=== PATIENT | female | born 1960 | race Caucasian/White ===

== ENCOUNTER → 2018-08-01 | Outpatient (CLI) | payer BC ==
[2018-08-01 08:53] LABS: HGB 12.5 gm/dL (11.4-16.0); MCH 28.6 pg (25.0-35.0); MCHC 32.8 g/dL (31.0-37.0); MCV 87.2 fL (80.0-100.0); Mean Platelet Volume 8.1; Platelet Count 226 k/uL (150-450); RBC 4.36 m/uL (3.80-5.40); RDW 13.4 % (11.5-15.5); WBC 5.7 k/uL (3.8-10.6)
[2018-08-01 17:53] LABS: T4, Free (Free Thyroxine) 1.1 ng/dL (0.80-1.80)
[2018-08-01 17:54] LABS: Digoxin 0.8 ng/mL (0.8-2.0)
[2018-08-01 18:26] LABS: Albumin/Globulin Ratio 2.22 (1.60-3.17); Anion Gap 4.7 mmol/L (4.00-12.00); Calcium 8.9 mg/dL (8.7-10.3); Carbon Dioxide 28.3 mmol/L (21.6-31.8); Globulin 1.8 g/dL (1.6-3.3); LDL Cholesterol,Calculated 139.4 mg/dL (0.0-131.0); Magnesium 1.9 mg/dL (1.5-2.4); Potassium 4.3 mmol/L (3.5-5.5); Total Bilirubin 0.5 mg/dL (0.3-1.2); Total Protein 5.8 g/dL (6.2-8.2); VLDL Calculation 17.6 mg/dL (5.00-40.00)
[2018-08-01 20:29] LABS: Hemoglobin A1C 5.4 % (4.0-6.0)
== END ==
LOC: LABWHC1 08:20
PROVIDERS: ATTEND Nurse Practitioner
DX: E78.5 Hyperlipidemia, unspecified (principal); E03.9 Hypothyroidism, unspecified; E11.9 Type 2 diabetes mellitus without complications; D64.9 Anemia, unspecified; E55.9 Vitamin D deficiency, unspecified; E87.8 Other disorders of electrolyte and fluid balance, not elsewhere classified; E83.50 Unspecified disorder of calcium metabolism; R94.5 Abnormal results of liver function studies
CPT/HCPCS: 36415; 80053; 80061; 80162; 82306; 83036; 83735; 84436; 84439; 84443; 85027

== ENCOUNTER → 2019-01-30 | Outpatient (CLI) | payer BC ==
[2019-01-30 08:52] LABS: HCT 39.2 % (34.0-46.0); HGB 12.5 gm/dL (11.4-16.0); MCH 28.2 pg (25.0-35.0); MCHC 31.8 g/dL (31.0-37.0); MCV 88.5 fL (80.0-100.0); Mean Platelet Volume 7.7; Platelet Count 229 k/uL (150-450); RBC 4.43 m/uL (3.80-5.40); RDW 13.2 % (11.5-15.5); WBC 6.6 k/uL (3.8-10.6)
[2019-01-30 17:29] LABS: African American GFR (CKD) 93.5 (60.0-200.0); Albumin 4.1 g/dL (3.80-4.90); Albumin/Globulin Ratio 2.28 (1.60-3.17); Anion Gap 5.8 mmol/L (4.00-12.00); BUN/Creat Ratio 12.5 Ratio (12.00-20.00); Calcium 8.7 mg/dL (8.7-10.3); Carbon Dioxide 29.2 mmol/L (21.6-31.8); Chol/HDL Ratio 3.55; Globulin 1.8 g/dL (1.6-3.3); LDL Cholesterol,Calculated 130.6 mg/dL (0.0-131.0); Potassium 4.3 mmol/L (3.5-5.5); Total Bilirubin 0.4 mg/dL (0.3-1.2); Total Protein 5.9 g/dL (6.2-8.2); VLDL Calculation 17.4 mg/dL (5.00-40.00)
[2019-01-30 17:47] LABS: T4, Free (Free Thyroxine) 0.9 ng/dL (0.80-1.80)
[2019-01-30 18:14] LABS: Hemoglobin A1C 5.1 % (4.0-6.0)
== END | disposition home or self-care (01) ==
LOC: LABWHC1 08:28
PROVIDERS: ATTEND Internal Medicine Cardiovascular Disease
DX: E78.5 Hyperlipidemia, unspecified (principal); E03.9 Hypothyroidism, unspecified; E11.9 Type 2 diabetes mellitus without complications; D64.9 Anemia, unspecified; E61.2 Magnesium deficiency; E55.9 Vitamin D deficiency, unspecified; D51.8 Other vitamin B12 deficiency anemias; I10 Essential (primary) hypertension; E87.8 Other disorders of electrolyte and fluid balance, not elsewhere classified
CPT/HCPCS: 36415; 80053; 80061; 82306; 82607; 83036; 83735; 84436; 84439; 84443; 84479; 85027

== ENCOUNTER → 2020-06-12 | Outpatient (CLI) | payer BC ==
[2020-06-12 20:10] LABS: T4, Free (Free Thyroxine) 1.2 ng/dL (0.80-1.80)
== END | disposition home or self-care (01) ==
LOC: LABWHC1 14:44
PROVIDERS: ATTEND Internal Medicine Cardiovascular Disease
DX: E55.9 Vitamin D deficiency, unspecified (principal); E03.9 Hypothyroidism, unspecified
CPT/HCPCS: 36415; 82306; 84436; 84439; 84443

== ENCOUNTER → 2020-06-19 | Outpatient (CLI) | payer BC | END | disposition home or self-care (01) | LOC: LABWHC1 15:42 | PROVIDERS: ATTEND Internal Medicine Cardiovascular Disease | DX: T46.0X1A Poisoning by cardiac-stimulant glycosides and drugs of similar action, accidental (unintentional), initial encounter (principal) | CPT/HCPCS: 36415; 80162 ==

== ENCOUNTER → 2021-10-06 | Outpatient (CLI) | payer BC ==
[2021-10-06 12:28] LABS: Basophils # (A) 0.05 X 10*3/uL (0.00-0.10); Basophils % (A) 0.7 %; Eosinophils # (A) 0.18 X 10*3/uL (0.04-0.35); Eosinophils % (A) 2.5 %; HCT 34.4 % (37.2-46.3); HGB 10.7 g/dL (12.0-15.0); Immature Grans, Automated 0.3 %; Lymphocytes # (A) 1.92 X 10*3/uL (0.90-5.00); Lymphocytes % (A) 26.4 %; MCH 27.4 pg (27.0-32.0); MCHC 31.1 g/dL (32.0-37.0); MCV 88.2 fL (80.0-97.0); Mean Platelet Volume 12.1 fL (9.5-12.2); Monocytes # (A) 0.63 X 10*3/uL (0.20-1.00); Monocytes % (A) 8.7 %; NRBC Per 100 WBC 0 /100 WBCS (0.0-0.0); Neutrophils # (A) 4.48 X 10*3/uL (1.80-7.70); Neutrophils % (A) 61.4 %; Platelet Count 211 X 10*3/uL (140-440); RDW 13.7 % (11.5-14.5); WBC 7.28 X 10*3/uL (4.50-10.00)
[2021-10-06 12:38] LABS: ALT 17 U/L (8-44); AST 19 U/L (13-35); African American GFR (CKD) 85.2 (60.0-200.0); Albumin 3.8 g/dL (3.8-4.9); Albumin/Globulin Ratio 1.79 (1.60-3.17); Alkaline Phosphatase 82 U/L (41-126); BUN/Creat Ratio 14.25 Ratio (12.00-20.00); Blood Urea Nitrogen 12.1 mg/dL (9.0-27.0); Calcium 8.8 mg/dL (8.7-10.3); Carbon Dioxide 27.4 mmol/L (20.0-27.5); Chloride 103 mmol/L (96-109); Globulin 2.1 g/dL (1.6-3.3); Glucose 97 mg/dL (70-110); LDL Cholesterol,Calculated 130.4 mg/dL (0.0-131.0); Non-African American GFR(CKD) 73.5 (60.0-200.0); Potassium 3.7 mmol/L (3.5-5.5); Sodium 138 mmol/L (135-145)
[2021-10-06 13:25] LABS: Appearance,Urine Cloudy (Clear); Bilirubin,Urine Negative (Negative); Blood,Urine Negative (Negative); Color,Urine Yellow (Yellow); Ketones,Urine Negative (Negative); Nitrite,Urine Negative (Negative); PH, Urine 6.5 (5.0-8.0); Specific Gravity,Urine 1.007 (1.001-1.030); Urobilinogen,Urine 0.2 (0.2,1.0)
[2021-10-06 13:30] LABS: Bacteria,Urine 3+ /HPF (None Seen)
== END | disposition home or self-care (01) ==
LOC: LABWHC1 08:09
PROVIDERS: ATTEND Family Medicine
DX: Z12.11 Encounter for screening for malignant neoplasm of colon (principal); I10 Essential (primary) hypertension; N95.1 Menopausal and female climacteric states
CPT/HCPCS: 36415; 80053; 80061; 81001; 85025

== ENCOUNTER → 2021-11-28 | Day surgery (SDC) | payer BC ==
[~2021-11-28] MED LIST: LACTATED RINGERS 1,000 ML IV SCH; PROPOFOL 10 MG/ML 20 ML VIAL IV ONE
--- NOTE | 2021-11-28 07:56 | P.GSHP ---
History of Present Illness H&P Date: 11/28/21 CHIEF COMPLAINT: Colon screen HISTORY OF PRESENT ILLNESS: The patient is a 61-year-old female who presents for colon screen. Lower endoscopy was offered for further evaluation and management. PAST MEDICAL HISTORY: Please see list. PAST SURGICAL HISTORY: Please see list. MEDICATIONS: Please see list. ALLERGIES: Please see list. SOCIAL HISTORY: No illicit drug use FAMILY HISTORY: No reports of Crohn disease or ulcerative colitis. REVIEW OF ORGAN SYSTEMS: CONSTITUTIONAL: No reports of fevers or chills. PHYSICAL EXAM: VITAL SIGNS: Stable GENERAL: Well-developed pleasant in no acute distress. HEENT: No scleral icterus. Extraocular movements grossly intact. Moist buccal mucosa. NECK: Supple without lymphadenopathy. CHEST: Unlabored respirations. Equal bilateral excursions. CARDIOVASCULAR: Regular rate and rhythm. Distal 2+ pulses. ABDOMEN: Soft, nontender, nondistended. MUSCULOSKELETAL: No clubbing, cyanosis, or edema. ASSESSMENT: 1. Colon screen. PLAN: 1. Recommend proceeding with a lower endoscopy Past Medical History Past Medical History: Hyperlipidemia, Hypertension Additional Past Medical History / Comment(s): renal calculi. heart murmur History of Any Multi-Drug Resistant Organisms: None Reported Past Surgical History: Hysterectomy, Tonsillectomy Additional Past Surgical History / Comment(s): lithotripsy Past Anesthesia/Blood Transfusion Reactions: No Reported Reaction Past Psychological History: No Psychological Hx Reported Smoking Status: Never smoker Past Alcohol Use History: Rare Past Drug Use History: None Reported - Past Family History Mother Family Medical History: No Reported History Medications and Allergies Home Medications Medication Instructions Recorded Confirmed Type Ascorbic Acid [Vitamin C] 1,000 mg PO DAILY 11/27/21 11/27/21 History Cholecalciferol [Vitamin D3 (25 25 mcg PO DAILY 11/27/21 11/27/21 History Mcg = 1000 Iu)] Diltiazem Cd [Cardizem CD] 120 mg PO HS 11/27/21 11/27/21 History Losartan [Cozaar] 50 mg PO HS 11/27/21 11/27/21 History Zinc Gluconate [Zinc] 50 mg PO DAILY 11/27/21 11/27/21 History estradioL [Estrace] 0.5 mg PO HS 11/27/21 11/27/21 History hydroCHLOROthiazide 12.5 mg PO QAM 11/27/21 11/27/21 History Allergies Allergy/AdvReac Type Severity Reaction Status Date / Time No Known Allergies Allergy Verified 11/27/21 07:58
[2021-11-28 11:49] VITALS: TEMP 97.7
--- NOTE | 2021-11-28 12:22 | P.PCN ---
Date of Procedure: 11/28/21 Description of Procedure: PREOPERATIVE DIAGNOSIS: Colonoscopy screening. Family history colon polyps POSTOPERATIVE DIAGNOSIS: Sigmoid diverticulosis with stricture, partial obstruction OPERATION: Colonoscopy to the sigmoid SURGEON: Sonam Tierney MD. ANESTHESIA: MAC. INDICATIONS: The patient is a 58-year-old female who presents for colonoscopy screening. Benefits and risks were described and informed consent was obtained. DESCRIPTION OF PROCEDURE: The patient had undergone Sutab prep. The patient had been brought into the operating room and laid in the left lateral decubitus position. After adequate intravenous sedation, the rectum was examined with 2% lidocaine jelly. No external hemorrhoids were encountered. The rectal tone was within normal limits. No lesions were palpated in the rectal vault. An Olympus colonoscope was using a pediatric scope. Stricture/angulation of the sigmoid colon, 20 cm from anal verge was identified preventing further advancement of the scope. Due to the risk of rupture, the case was aborted. The colon was desufflated. The patient had tolerated the procedure well. Withdrawal time was over 6 minutes. FINDINGS: Aronchick preparation quality scale 1 (1-5) Severe sigmoid diverticulosis at 20 cm from the anal verge with angulation/obstruction RECOMMENDATIONS: 1. Immediate barium enema 2. May benefit from Cologaurd 3. Attempted repeat one year2022 Plan - Discharge Summary Discharge Rx Participant: No New Discharge Prescriptions: Continue Zinc Gluconate [Zinc] 50 mg PO DAILY Losartan [Cozaar] 50 mg PO HS Ascorbic Acid [Vitamin C] 1,000 mg PO DAILY hydroCHLOROthiazide 12.5 mg PO QAM estradioL [Estrace] 0.5 mg PO HS Diltiazem Cd [Cardizem CD] 120 mg PO HS Cholecalciferol [Vitamin D3 (25 Mcg = 1000 Iu)] 25 mcg PO DAILY Discharge Medication List Ascorbic Acid [Vitamin C] 1,000 mg PO DAILY 11/27/21 [History] Cholecalciferol [Vitamin D3 (25 Mcg = 1000 Iu)] 25 mcg PO DAILY 11/27/21 [History] Diltiazem Cd [Cardizem CD] 120 mg PO HS 11/27/21 [History] Losartan [Cozaar] 50 mg PO HS 11/27/21 [History] Zinc Gluconate [Zinc] 50 mg PO DAILY 11/27/21 [History] estradioL [Estrace] 0.5 mg PO HS 11/27/21 [History] hydroCHLOROthiazide 12.5 mg PO QAM 11/27/21 [History] Follow up Appointment(s)/Referral(s): Sonam Tierney MD [STAFF PHYSICIAN] - 12/18/21 Patient Instructions/Handouts: Diverticulosis (GEN), Diverticulosis Diet (GEN) Activity/Diet/Wound Care/Special Instructions: Repeat colonoscopy in one year, 2022 Discharge Disposition: HOME SELF-CARE
[2021-11-28 13:54] VITALS: BP 149/77; PULSE 64; RESP 14
--- NOTE | 2021-11-29 13:10 | XR ---
EXAMINATION TYPE: XR abdomen 1V DATE OF EXAM: 11/28/2021 3:19 PM CLINICAL HISTORY: Failed colonoscopy. TECHNIQUE: Single supine KUB image of the abdomen is obtained. COMPARISON: None. FINDINGS: Gas prominent small bowel and to greater degree colonic loops. Gas seen in nondistended sto mach. IMPRESSION: Ordered barium enema for failed colonoscopy is canceled by on site radiologist due to gas eous prominence of the colonic loops.
== END | disposition home or self-care (01) ==
LOC: ORWHC2ENDO 10:26
PROVIDERS: ATTEND Surgery Plastic and Reconstructive Surgery
DX: Z12.11 Encounter for screening for malignant neoplasm of colon (principal); K57.30 Diverticulosis of large intestine without perforation or abscess without bleeding; K56.600 Partial intestinal obstruction, unspecified as to cause; K56.699 Other intestinal obstruction unspecified as to partial versus complete obstruction; Z80.0 Family history of malignant neoplasm of digestive organs; I10 Essential (primary) hypertension; E78.5 Hyperlipidemia, unspecified; I49.9 Cardiac arrhythmia, unspecified; R01.1 Cardiac murmur, unspecified; Z87.442 Personal history of urinary calculi; Z90.89 Acquired absence of other organs; Z90.710 Acquired absence of both cervix and uterus; Z53.8 Procedure and treatment not carried out for other reasons
CPT/HCPCS: 74018; 45330; J2704

== ENCOUNTER → 2021-11-29 | Outpatient (CLI) | payer BC ==
--- NOTE | 2021-11-30 08:41 | XR ---
EXAMINATION TYPE: XR KUB DATE OF EXAM: 11/29/2021 Comparison: 11/28/2021 Clinical History: 62-year-old female incomplete COLONOSCOPY. Petrophysicist image prior to barium enema. Findings: There is overall nonobstructive bowel gas pattern but with persistent moderate excessive air througho ut the colon though decreased from yesterday's exam. The patient will need to be rescheduled for santos um enema. No suspicious calcification seen. Impression: Some decrease in colonic air compared to yesterday but with persistent moderate excessive retained ai r. The patient will need to be rescheduled for barium enema. Findings and impression were discussed w ith the patient.
== END | disposition home or self-care (01) ==
LOC: RADFLMAIN 09:51
PROVIDERS: ATTEND Surgery Plastic and Reconstructive Surgery
DX: Z53.09 Procedure and treatment not carried out because of other contraindication (principal)
CPT/HCPCS: 74018

== ENCOUNTER → 2021-12-12 | Outpatient (CLI) | payer BC ==
--- NOTE | 2021-12-12 10:37 | FL ---
EXAMINATION TYPE: FL barium enema DATE OF EXAM: 12/12/2021 COMPARISON: None HISTORY: Incomplete colonoscopy, volvulus TECHNIQUE: A double air contrast lower GI study is performed. FINDINGS: Fluoroscopy time: 2 minutes 7 seconds. Images: 20 Pulmonary consumer insight manager film was obtained. Contrast followed by air is refluxed into the colon to the cecum. Postevacuation films were obtained. There is redundancy within the sigmoid colon. Overlapping causes limitation in evaluation to this reg ion. Multiple diverticuli are through the colon including descending colon and sigmoid colon transver se colon. Ileocecal valve is identified. The appendix is identified. Postevacuation films appear unre markable. No circumferential areas of narrowing is evident. No filling defects are identified. IMPRESSIONS: 1. Diverticulosis without acute diverticulitis. 2. No suspicious volvulus or suspicious mass is identified.
== END | disposition home or self-care (01) ==
LOC: RADFLMAIN 08:46
PROVIDERS: ATTEND Surgery Plastic and Reconstructive Surgery
DX: K56.2 Volvulus (principal)
CPT/HCPCS: 74270

== ENCOUNTER → 2022-04-18 | Outpatient (CLI) | payer BC ==
--- NOTE | 2022-04-18 11:02 | US ---
EXAMINATION TYPE: US gallbladder DATE OF EXAM: 04/18/2022 COMPARISON: NONE CLINICAL HISTORY: K81.1 CHRONIC CHOLECYSTITIS. pain TECHNIQUE: Multiple sonographic images of the right upper quadrant are obtained. FINDINGS: EXAM MEASUREMENTS: Liver Length: 12.8 cm Gallbladder Wall: .2 cm CBD: .2 cm Right Kidney: 9.6 x 3.9 x 4.1 cm Pancreas: Tail obscured by overlying bowel gas Liver: Increased attenuation Gallbladder: No stones seen Evidence for sonographic Miller's sign: no CBD: wnl Right Kidney: No hydronephrosis or masses seen IMPRESSION: No evidence of cholelithiasis or acute process. If there is concern for chronic cholecystitis concern ing for medicine HIDA scan.
== END | disposition home or self-care (01) ==
LOC: RADUSWWP 10:14
PROVIDERS: ATTEND Surgery Plastic and Reconstructive Surgery
DX: K81.1 Chronic cholecystitis (principal)
CPT/HCPCS: 76705

== ENCOUNTER → 2022-10-09 | Outpatient (CLI) | payer BC ==
[2022-10-09 11:23] LABS: ALT 15 U/L (8-44); AST 19 U/L (13-35); Chol/HDL Ratio 3.27 Ratio; LDL Cholesterol,Calculated 127.3 mg/dL (0.0-131.0)
== END | disposition home or self-care (01) ==
LOC: LABWHC1 07:10
PROVIDERS: ATTEND Internal Medicine Cardiovascular Disease
DX: E78.2 Mixed hyperlipidemia (principal); I49.3 Ventricular premature depolarization
CPT/HCPCS: 36415; 80061; 84443; 84450; 84460

== ENCOUNTER → 2022-12-18 | Outpatient (CLI) | payer BC ==
[2022-12-18 14:15] LABS: ALT 15 U/L (8-44); AST 16 U/L (13-35); Albumin 3.9 d/dL (3.8-4.9); Alkaline Phosphatase 72 U/L (41-126); Blood Urea Nitrogen 18.6 mg/dL (9.0-27.0); Calcium 9.4 mg/dL (8.7-10.3); Carbon Dioxide 29.2 mmol/L (21.6-31.8); Chloride 103 mmol/L (96-109); Globulin 2.3 d/dL (1.6-3.3); Glucose 100 mg/dL (70-110); Potassium 4.2 mmol/L (3.5-5.5); Sodium 141 mmol/L (135-145); Total Bilirubin 0.3 mg/dL (0.3-1.2); Total Protein 6.2 d/dL (6.2-8.2)
== END | disposition home or self-care (01) ==
LOC: LABWHC1 06:51
PROVIDERS: ATTEND Family Medicine
DX: I10 Essential (primary) hypertension (principal)
CPT/HCPCS: 36415; 80053; 83036

== ENCOUNTER → 2024-02-13 | Outpatient (CLI) | payer BC ==
--- NOTE | 2024-02-13 11:44 | BD ---
EXAMINATION TYPE: Axial Bone Density DATE OF EXAM: 02/13/2024 CLINICAL HISTORY: 63 years old Female. ICD-10 CODE: Z78.0 POST MENOPAUSAL , Additional History: Height: 64.75 Weight: 145 FRAX RISK QUESTIONS: Family History (Parent hip fracture): no History of Fracture in Adulthood: yes Secondary Osteoporosis: no RISK FACTORS HISTORY OF: Surgery to Spine/Hip(right/left)/Wrist (right/left): no MEDICATIONS: Thyroid Medications: no Osteoporosis Medications: no EXAM MEASUREMENTS: Bone mineral densitometry was performed using the [employer] System. Bone mineral density as measured about the Lumbar spine is: ----- L1-L4(G/cm2): 1.350 T Score Values are as follows: ----- L1: 0.7 ----- L2: 0.3 ----- L3: 1.1 ----- L4: 3.2 ----- L1-L4: 1.4 Z Score Values are as follows: ----- L1: 2.2 ----- L2: 1.9 ----- L3: 2.6 ----- L4: 4.7 ----- L1-L4: 2.9 Bone mineral density baseline Bone mineral density about the R hip (g/cm2): 0.977 Bone mineral density about the L hip (g/cm2): 0.988 T Score values are as follows: -----R Neck: -1.4 -----L Neck: -1.3 -----R Total: -0.2 -----L Total: -0.2 Z Score values are as follows: -----R Neck: 0.1 -----L Neck: 0.1 -----R Total: 0.9 -----L Total: 1.0 Bone mineral density baseline FRAX%s: The graph provided illustrates a 14.1% chance for a major osteoporotic fx and a 1.4% chance f or the hips probability for fx in 10 years time. IMPRESSION: Osteopenia (T Score between -2.5 and -1). There is slightly increased risk of fracture and the patient may be considered for treatment. Re-Screen 2-5 years. NOTE: T-SCORE=SD OF THE YOUNG ADULT MEAN. [facility], , 02/13/2024 11:42 AM
== END | disposition home or self-care (01) ==
LOC: RADBDWWP 07:13
PROVIDERS: ATTEND Family Medicine
DX: M85.89 Other specified disorders of bone density and structure, multiple sites (principal); Z78.0 Asymptomatic menopausal state
CPT/HCPCS: 77080

== ENCOUNTER → 2024-02-25 | Outpatient (CLI) | payer BC ==
[2024-02-25 10:59] LABS: Hepatitis A Antibody IgM Nonreactive (Nonreactive); Hepatitis B Core IgM Nonreactive (Nonreactive); Hepatitis B Surface Antigen Nonreactive (Nonreactive); Hepatitis C IgG Antibody Nonreactive (Nonreactive)
[2024-02-25 11:17] LABS: ALT 91 U/L (8-44); AST 51 U/L (13-35); Albumin/Globulin Ratio 1.54 Ratio (1.60-3.17); Alkaline Phosphatase 244 U/L (41-126); Bilirubin, Conjugated <0.20 mg/dL (0.20-0.40); Bilirubin,Unconjugated >0.30 mg/dL (0.20-1.00); Globulin 2.6 g/dL (1.6-3.3); Total Bilirubin 0.5 mg/dL (0.3-1.2); Total Protein 6.6 g/dL (6.2-8.2)
== END | disposition home or self-care (01) ==
LOC: LABWHC1 07:30
PROVIDERS: ATTEND Family Medicine
DX: R74.01 Elevation of levels of liver transaminase levels (principal)
CPT/HCPCS: 36415; 80074; 80076

== ENCOUNTER → 2024-03-16 | Outpatient (CLI) | payer BC ==
[2024-03-16 16:29] LABS: Albumin 4.3 g/dL (3.8-4.9); Albumin/Globulin Ratio 1.59 Ratio (1.60-3.17); Bilirubin, Conjugated 0.21 mg/dL (0.20-0.40); Bilirubin,Unconjugated 0.19 mg/dL (0.20-1.00); Globulin 2.7 g/dL (1.6-3.3); Total Bilirubin 0.4 mg/dL (0.3-1.2)
== END | disposition home or self-care (01) ==
LOC: LABWHC1 11:05
PROVIDERS: ATTEND Family Medicine
DX: R74.01 Elevation of levels of liver transaminase levels (principal)
CPT/HCPCS: 36415; 80076; 82390; 83516

== ENCOUNTER → 2024-03-30 | Outpatient (CLI) | payer BC ==
--- NOTE | 2024-03-30 08:13 | US ---
EXAMINATION TYPE: US liver DATE OF EXAM: 03/30/2024 COMPARISON: US 04/18/2022, [place] 2022 CLINICAL INDICATION: Female, 63 years old with history of R74.20 ELEVATION OF LEVELS OF LIVER TRANSAM INASE L; Transaminitis. Hx colectomy. TECHNIQUE: Grayscale and color Doppler imaging of the right upper quadrant. FINDINGS: EXAM MEASUREMENTS: Liver Length: 12.2 cm Gallbladder Wall: 0.18 cm CBD: 0.34 cm, color Doppler imaging was utilized to isolate the common bile duct for measurement. Right Kidney: 10.4 x 4.6 x 4.3 cm CREDIT ADJUSTER NOTES: Exam is limited due to gas. Pancreas: Tail was obscured. Portions seen appear hyperechoic. Liver: Appears coarse. Gallbladder: *Hyperechoic area seen that appears to be attached to the gallbladder wall: 0.3 x 0.3 x 0.2 cm. Evidence for sonographic Miller's sign: No CBD: Appears wnl Right Kidney: 2 hyperechoic foci seen. #1 seen lateral: 0.5 x 0.5 x 0.4 cm. #2 seen mid: 0.5 x 0.6 x 0.5 cm. IMPRESSION: 1. Nonobstructing right renal stones. 2. Gallbladder Polyp or gallstone. [facility], , 03/30/2024 8:10 AM
== END | disposition home or self-care (01) ==
LOC: RADUSWWP 07:08
PROVIDERS: ATTEND Family Medicine
DX: R74.01 Elevation of levels of liver transaminase levels (principal); N20.0 Calculus of kidney; K80.20 Calculus of gallbladder without cholecystitis without obstruction; Z90.49 Acquired absence of other specified parts of digestive tract
CPT/HCPCS: 76705

== ENCOUNTER → 2024-07-19 | Outpatient (CLI) | payer BC ==
--- NOTE | 2024-07-19 11:46 | MM ---
Reason for Exam: Screening (asymptomatic). Last mammogram was performed 1 year(s) and 1 month(s) ago. Patient History: Menarche at age 13. Patient has no children. Left ovary removed at age 43. Right ovary removed at age 43. Hysterectomy at age 43. Currently using Estrogen, for 20 years. Patient used Hormonal Contraceptives for 20 years. Paternal aunt had breast cancer at or over age 50. Risk Values: Johanne 5 year model risk: 1.7%. NCI Lifetime model risk: 6.3%. Prior Study Comparison: 02/07/2020 Bilateral Screening Mammogram, [facility]. 05/14/2021 Bilateral Screening Mammogram, [facility]. 07/05/2022 Bilateral Screening Mammogram, [facility]. 07/08/2023 Bilateral Screening Mammogram, [facility]. Tissue Density: The breasts are heterogeneously dense, which may obscure small masses. Findings: Analyzed By CAD. Right breast: There is no suspicious group of microcalcifications or new suspicious mass. Left breast: There is no suspicious group of microcalcifications or new suspicious mass. Overall Assessment: Negative, BI-RAD 1 Management: Screening Mammogram of both breasts in [address] [facility] will attempt to contact patient to return for supplemental views and ultrasound if indicated. Patient should continue monthly self-breast exams. A clinical breast exam by your physician is recommended on an annual basis. This exam should not preclude additional follow-up of suspicious palpable abnormalities. Note on Johanne scores and lifetime risk: 1. A Johanne score greater than 3% is considered moderate risk. If this is the case, consider specialist referral to assess eligibility for a risk reducing agent. 2. If overall lifetime risk for the development of breast cancer is 20% or higher, the patient may qualify for future screening with alternating mammogram and breast MRI. [facility], , 07/19/2024 11:43 AM. Electronically signed and approved by: Dorian Arambula DO
== END | disposition home or self-care (01) ==
LOC: RADMAMWWP 09:26
PROVIDERS: ATTEND Obstetrics & Gynecology
DX: Z12.31 Encounter for screening mammogram for malignant neoplasm of breast (principal); R92.333 Mammographic heterogeneous density, bilateral breasts; Z80.3 Family history of malignant neoplasm of breast; Z92.0 Personal history of contraception
CPT/HCPCS: 77063; 77067